=== PATIENT | male | born 1995 | race African-American/Black ===

== ENCOUNTER 2019-09-08 02:02 | Emergency (ER) | payer SELFPAY ==
[~2019-09-08] VITALS: Ht 182.9 cm; Wt 73.0 kg
[2019-09-08] MEDS ORDERED: ACETAMINOPHEN WITH CODEINE 300/30MG TABLET PO STA (02:47)
[2019-09-08] MEDS ORDERED: KETOROLAC 30MG/ML VIAL IM STA (02:47)
[2019-09-08] MEDS ORDERED: LIDOCAINE 5% PATCH TOP SCH (03:00)
[2019-09-08 04:28] VITALS: BP 132/95
== END 2019-09-08 04:52 | disposition home or self-care (01) ==
LOC: ER 02:02
DX: M54.10 Radiculopathy, site unspecified (principal); J45.909 Unspecified asthma, uncomplicated
CPT/HCPCS: 96372; 99283; J1885

== ENCOUNTER 2021-05-13 09:39 | Emergency (ER) | payer MEDICAID ==
[~2021-05-13] VITALS: Ht 177.8 cm; Wt 70.0 kg
[2021-05-13] MEDS ORDERED: KETOROLAC 60MG/2ML VIAL IM STA (10:34)
[2021-05-13 10:45] VITALS: BP 136/83
[2021-05-13] MEDS ORDERED: TRAM50TA3 MT (11:15)
[2021-05-13] MEDS ORDERED: NAPR-681 PO (11:15)
[2021-05-13] MEDS ORDERED: AMOX-494 PO (11:15)
== END 2021-05-13 11:37 | disposition home or self-care (01) ==
LOC: EDBD 09:39 → ER 09:39
DX: K02.9 Dental caries, unspecified (principal); M54.50 Low back pain, unspecified; G89.29 Other chronic pain; J45.909 Unspecified asthma, uncomplicated; Z98.890 Other specified postprocedural states
CPT/HCPCS: 96372; 99283; J1885